=== PATIENT | female | born 1955 | race African-American/Black ===

== ENCOUNTER → 2018-10-25 | Day surgery (SDC) | payer OTHER ==
[2018-10-24 14:17] LABS: ANION GAP 15.3 mmol/L (8-16); BLOOD UREA NITROGEN 9 mg/dL (7-26); BUN/CREATININE RATIO 11 (6-25); CALCIUM 9.9 mg/dL (8.4-10.2); CARBON DIOXIDE 26 mmol/L (22-29); CHLORIDE 101 mmol/L (98-107); CREATININE, SERUM 0.79 mg/dL (0.57-1.11); EST GLOMERULAR FILTRATION RATE > 60 ML/MIN (60-); GLUCOSE 145 mg/dL (74-118); POTASSIUM 3.3 mmol/L (3.5-5.1); SODIUM 139 mmol/L (136-145)
[~2018-10-25] MED LIST: AMLODIPINE BESY10 MG PO; APRISO0.375 GM PO; BAYER PO; BUPIVACAINE HCL 0.5% INJ 30 ML VIAL INJ ONE; BUPIVACAINE LIPOSOME/PF 266 MG/20 ML IJ ONE; CEFAZOLIN SOD 1 GM/NS 50ML 100 ML IV ONE; DEXAMETHASONE SOD PHOS INJ 4 MG/ML VIAL ONE; FENTANYL CITRATE/PF 100MCG/2 ML INJ ONE; HYDROCHLOROTHIA25 MG PO; JANUVIA100 MG PO; KETOROLAC TROMETHAMINE 30 MG/ML VIAL ONE; LIDOCAINE HCL 2% LOCAL INJ 5 ML SDV VIAL INJ ONE; MIDAZOLAM HCL 2 MG/2 ML VIAL ONE; ONDANSETRON HCL INJ 2MG/ML 2ML 2 MG/ML VIAL ONE; PROPOFOL IV EMULSION 10 MG/ML 20 ML VIAL ONE; SEVOFLURANE INHAL SOLN 250 ML PEN BTL ONE; SIMVASTATIN20 MG PO
--- OUTSIDE RECORDS SUMMARY | 2018-10-25 10:12 | XMS REPORT | Clinical Summary ---
Author Author [facility] Address Unknown Phone Unavailable Care Team Providers Care Costumer Assistant Name Role Phone Amol Soni MD PCP Allergies No Known Allergies Medications End Date Status Medication Sig Dispensed Refills Start Date 06/24/2018 ciprofloxacin (CIPRO) 500 Take 1 tablet 14 tablet 0 201 MG tablet (500 mg 9 total) by mouth 2 (two) times a day for 7 days. 06/24/2018 metroNIDAZOLE (FLAGYL) Take 1 tablet 21 tablet 0 500 MG tablet (500 mg 9 total) by mouth 3 (three) times a day for 7 days. Active Problems Not on file Encounters Care Team Description Date Type Specialty Tika Villalobos MD Colitis (Primary Dx) 06/16/2018 Emergency Emergency Medicine - 06/17/2018 06/16/2018 Travel Amol Soni MD Diarrhea, unspecified type (Primary Dx) 06/15/2018 Transcribe Orders after 10/24/2017 Social History Date Tobacco Use Types Packs/Day Years Used Never Smoker Smokeless Tobacco: Never Used Alcohol Use Drinks/Week oz/Week Comments No Alcohol Habits Answer Date Recorded How often do you have a drink containing alcohol? Never 06/16/2018 How many drinks containing alcohol do you have on Not asked a typical day when you are drinking? How often do you have six or more drinks on one Not asked occasion? Sex Assigned at Date Recorded Not on file Industry Job Start Date Occupation Not on file Not on file Not on file Travel End Travel History Travel Start No recent travel history available. Last Filed Vital Signs Time Taken Vital Sign Reading 06/17/2018 1:00 AM CDT Blood Pressure 127/71 06/17/2018 1:00 AM CDT Pulse 108 06/17/2018 1:00 AM CDT Temperature 37.1 C (98.8 F) 06/17/2018 1:00 AM CDT Respiratory Rate 20 06/17/2018 1:00 AM CDT Oxygen Saturation 96% - Inhaled Oxygen - Concentration 06/16/2018 9:56 PM CDT Weight 99.8 kg (220 lb) 06/16/2018 9:56 PM CDT Height 177.8 cm (5' 10") 06/16/2018 9:56 PM CDT Body Mass Index 31.57 Plan of Treatment Health Maintenance Due Date Last Done Comments BREAST CANCER SCREENING 2006 COLONOSCOPY SCREENING 2006 SHINGLES VACCINES (#1) 2006 INFLUENZA VACCINE 10/26/2018 Procedures Comments Procedure Name Priority Date/Time Associated Diagnosis CT ABDOMEN PELVIS W STAT 06/17/2018 CONTRAST 12:31 AM CDT MANUAL DIFFERENTIAL STAT 06/16/2018 10:58 PM CDT ESTIMATED GFR STAT 06/16/2018 10:58 PM CDT TYPE AND SCREEN STAT 06/16/2018 10:58 PM CDT PROTHROMBIN TIME WITH INR STAT 06/16/2018 10:58 PM CDT HEPATIC FUNCTION PANEL STAT 06/16/2018 10:58 PM CDT LIPASE LEVEL STAT 06/16/2018 10:58 PM CDT BASIC METABOLIC PANEL STAT 06/16/2018 10:58 PM CDT CBC WITH PLATELET AND STAT 06/16/2018 DIFFERENTIAL 10:58 PM CDT after 10/24/2017 Results * CT Abdomen Pelvis W Contrast (06/17/2018 12:31 AM CDT) Specimen Narrative Performed At CT ABDOMEN PELVIS W CONTRAST [facility] CLINICAL INDICATION:Abd paindiverticulitis suspected, llq pain TECHNIQUE: Multidetector CT of the abdomen and pelvis was performed following intravenous administration of iodinated contrast with multiplanar reformats. CT scans are performed using radiation dose reduction techniques (iterative reconstruction and/or automated exposure control). Technical factors are evaluated and adjusted to ensure appropriate moderation of exposure. Automated dose management technology is applied to adjust radiation exposure while achieving a diagnostic quality image. COMPARISON:None. FINDINGS: Lung bases:Basilar subsegmental atelectasis/scarring. Liver:Ill-defined hypodensity with overlying capsular retraction involving segment IVb, measures approximately 3.0 cm. Few other subcentimeter hepatic cysts/hypodensities are overall too small to characterize though are likely benign. [No follow-up recommended unless clinically warranted.] . Gallbladder and biliary:The gallbladder is absent. Clips within the gallbladder fossa. Common bile duct is not dilated. Pancreas:Normal. Spleen:Normal. Gastrointestinal: Wall thickening of the cecum, ascending colon, transverse colon and proximal descending colon as well as rectum with associated pericolonic stranding. Large and small bowel are normal in caliber. Appendix is not visualized. No focal inflammatory changes within the right lower quadrant of the abdomen. Adrenals:Normal. Kidneys and ureters: Renal cysts measure up to 1.9 cm on right. Few other bilateral subcentimeter renal cysts/hypodensities are overall too small to characterize though are likely benign. [No follow-up recommended unless clinically warranted.]No hydronephrosis. Urinary bladder:Normal. Lymph nodes: Mesenteric lymph nodes measure 1.6 cm on right, nonspecific, may be reactive. Peritoneum:No ascites or free air. Vascular:Mild atherosclerotic changes of the abdominal aorta and major branch vessels. Reproductive organs:Uterus is lobulated likely related to fibroids. Unremarkable adnexae. Abdominal wall: Small fat-containing umbilical hernia. Partially visualized lipoma of left proximal thigh medial compartment. Right breast nodule measuring 1.8 cm. Bones:Mild degenerative changes. IMPRESSION: 1. Colitis involving majority of colon as well as rectum. There is relative sparing of the sigmoid colon. 2. Left hepatic lobe lesion (segment IVb). Recommend further evaluation with nonemergent contrast-enhanced MRI. 3. Right breast nodule. Recommend correlation with dedicated nonemergent breast imaging. [facility]-[id number] Procedure Note [facility], Radiology Results Incoming - 06/17/2018 12:[address] ABDOMEN PELVIS W CONTRAST CLINICAL INDICATION: Abd pain diverticulitis suspected, llq pain TECHNIQUE: Multidetector CT of the abdomen and pelvis was performed following intravenous administration of iodinated contrast with multiplanar reformats. CT scans are performed using radiation dose reduction techniques (iterative reconstruction and/or automated exposure control). Technical factors are evaluated and adjusted to ensure appropriate moderation of exposure. Automated dose management technology is applied to adjust radiation exposure while achieving a diagnostic quality image. COMPARISON: None. FINDINGS: Lung bases: Basilar subsegmental atelectasis/scarring. Liver: Ill-defined hypodensity with overlying capsular retraction involving segment IVb, measures approximately 3.0 cm. Few other subcentimeter hepatic cysts/hypodensities are overall too small to characterize though are likely benign. [No follow-up recommended unless clinically warranted.] . Gallbladder and biliary: The gallbladder is absent. Clips within the gallbladder fossa. Common bile duct is not dilated. Pancreas: Normal. Spleen: Normal. Gastrointestinal: Wall thickening of the cecum, ascending colon, transverse colon and proximal descending colon as well as rectum with associated pericolonic stranding. Large and small bowel are normal in caliber. Appendix is not visualized. No focal inflammatory changes within the right lower quadrant of the abdomen. Adrenals: Normal. Kidneys and ureters: Renal cysts measure up to 1.9 cm on right. Few other bilateral subcentimeter renal cysts/hypodensities are overall too small to characterize though are likely benign. [No follow-up recommended unless clinically warranted.] No hydronephrosis. Urinary bladder: Normal. Lymph nodes: Mesenteric lymph nodes measure 1.6 cm on right, nonspecific, may be reactive. Peritoneum: No ascites or free air. Vascular: Mild atherosclerotic changes of the abdominal aorta and major branch vessels. Reproductive organs: Uterus is lobulated likely related to fibroids. Unremarkable adnexae. Abdominal wall: Small fat-containing umbilical hernia. Partially visualized lipoma of left proximal thigh medial compartment. Right breast nodule measuring 1.8 cm. Bones: Mild degenerative changes. IMPRESSION: 1. Colitis involving majority of colon as well as rectum. There is relative sparing of the sigmoid colon. 2. Left hepatic lobe lesion (segment IVb). Recommend further evaluation with nonemergent contrast-enhanced MRI. 3. Right breast nodule. Recommend correlation with dedicated nonemergent breast imaging. [facility]-[id number] Performing Organization Address City/State/Zipcode Phone Number [place] [address] [place] [address] * Estimated GFR (06/16/2018 10:58 PM CDT) Estimated GFR 80 mL/min/1.73 m2 [place] Comment: GREGG BOOKER [facility] G1 >=90 Normal or high G2 60-89Mildly decreased [id number] Mildly to moderately decreased [id number] Moderately to severely decreased G4 15-29Severely decreased G5 <15Kidney failure The eGFR was calculated using the Chronic Kidney Disease Epidemiology Collaboration (CKD-EPI) equation. Interpretation is based on recommendations of the National Kidney Foundation-Kidney Disease Outcomes Quality Initiative (NKF-KDOQI) published in 2014. Specimen Plasma specimen Performing Organization Address City/State/Zipcode Phone Number [place] [phone] [facility] [place] [address] PATHOLOGY AND GENOMIC MEDICINE [address] * Manual differential (06/16/2018 10:58 PM CDT) Manual PERFORMED [place] differential [facility] Neutrophils 63.0 36.0 - 66.0 % [facility] Lymphocytes 20.0 (L) 24.0 - 44.0 % [facility] Monocytes 11.0 (H) 0.0 - 6.0 % [facility] Eosinophils 6.0 0.0 - 6.0 % [facility] Basophils 0.0 0.0 - 1.2 % [facility] Metamyelocytes 0 0 - 1 % [facility] Promyelocytes 0 0 - 1 % [facility] Platelet slide Hernan adequate [facility] review [facility] Specimen Performing Organization Address City/State/Zipcode Phone Number [place] [phone] [facility] [place] [phone] PATHOLOGY AND GENOMIC MEDICINE [address] * Prothrombin time with INR (06/16/2018 10:58 PM CDT) Prothrombin 13.4 11.5 - 14.5 sec [facility] INR 1.05 [place] Comment: GREGG BOOKER For patients on anticoagulant [place] therapy, reference ranges [facility]OS[facility]ITAL below: Indication: INR Value Treatment of Venous Thrombosis, 2.0-3.0 pulmonary emboli, or prophylaxis of a venous thrombosis, or systemic emboli. High dose, high risk patients 3.0-4.5 with mechanical valves. NOTE:INR values over 3.0 are sometimes associated with gastrointestinal hemorrhage, especially values over 4.0. Specimen Blood Performing Organization Address City/State/Zipcode Phone Number [facility] DEPARTMENT OF [address] [place] [address] PATHOLOGY AND GENOMIC MEDICINE [facility] [address] [place], [place] [phone] [place] [address] * CBC with platelet and differential (06/16/2018 10:58 PM CDT) WBC 5.8 4.2 - 11.0 k/uL [facility] RBC 4.59 4.04 - 5.86 m/uL [facility] HGB 11.8 11.5 - 15.3 g/dL [facility] HCT 38.0 34.0 - 45.0 % [facility] MCV 82.8 80.0 - 98.0 fL [facility] MCH 25.7 (L) 27.0 - 34.0 pg [facility] MCHC 31.1 (L) 31.5 - 36.5 g/dL [facility] RDW - SD 40.7 37.0 - 51.0 fL [facility] MPV 12.5 (H) 7.4 - 10.4 fL [facility] Platelet count 203 150 - 400 k/uL [facility] Nucleated RBC 0.00 /100 WBC [facility] Neutrophils 63.0 36.0 - 66.0 % [facility] Lymphocytes 20.0 (L) 24.0 - 44.0 % [facility] Monocytes 11.0 (H) 0.0 - 6.0 % [facility] Eosinophils 6.0 0.0 - 6.0 % [facility] Basophils 0.0 0.0 - 1.2 % [facility] Specimen Blood Performing Organization Address City/[facility]/Zipcode Phone Number [facility] DEPARTMENT OF [address] [place] [phone] PATHOLOGY AND GENOMIC MEDICINE [place] [address] [address] * Type and screen (06/16/2018 10:58 PM CDT) Pathologist [facility] ABO grouping A [facility] Rh type NEG [facility] Antibody screen NEG [facility] (gel) [facility] Specimen Blood Performing Organization Address City/[facility]/Zipcode Phone Number [facility] DEPARTMENT OF [address] [place] [phone] PATHOLOGY AND GENOMIC MEDICINE [place] [address] [address] * Lipase level (06/16/2018 10:58 PM CDT) Pathologist [facility] Lipase 116 (H) 13 - 60 U/L [facility] Specimen Plasma specimen Performing Organization Address [facility] Phone Number [facility] DEPARTMENT OF [address] [place] [phone] PATHOLOGY AND GENOMIC MEDICINE [place] [address] [address] * Hepatic function panel (06/16/2018 10:58 PM CDT) [facility] Albumin 3.4 (L) 3.5 - 5.0 g/dL [facility] Total bilirubin 0.3 0.2 - 1.2 mg/dL [facility] Bilirubin <0.2 0.0 - 0.4 mg/dL [facility] direct [facility] Alkaline 83 0 - 104 U/L [place] phosphatase [facility] Protein 8.4 (H) 6.3 - 8.3 g/dL [facility] ALT 14 5 - 50 U/L [facility] AST 20 10 - 35 U/L [facility] Specimen Plasma specimen Performing Organization Address City/[facility]/Zipcode Phone Number [facility] DEPARTMENT OF [address] [place] [phone] PATHOLOGY AND GENOMIC MEDICINE [place] [address] [address] [place], [place] [phone] [place] [address] * Basic metabolic panel (06/16/2018 10:58 PM CDT) Sodium 139 135 - 150 mEq/L [facility] Potassium 3.2 (L) 3.5 - 5.0 mEq/L [facility] Chloride 95 (L) 98 - 112 mEq/L [facility] CO2 28 24 - 31 mmol/L [facility] Anion gap 16@ANIO (H) 7 - 15 mEq/L [facility] BUN 10 7 - 18 mg/dL [facility] Creatinine 0.90 0.50 - 0.90 mg/dL [facility] Glucose 231 (H) 65 - 100 mg/dL [facility] Calcium 9.4 8.8 - 10.2 mg/dL [facility] Specimen Plasma specimen Performing Organization Address City/State/Zipcode Phone Number [facility] DEPARTMENT OF [address] [place] [address] PATHOLOGY AND GENOMIC MEDICINE [facility] [address] after 10/24/2017 Insurance Type Payer Benefit Subscriber ID Effective Phone Address Plan / Dates Group Exchange [employer] [facility] xxxxxxxxxxxx 2018-P EXCHANGE [facility] resent EXCHANGE [employer] Advance Directives Patient has advance care planning documents on file. For more information, plebrandi e contact: [facility] [address] [place] [address]
[2018-10-25 14:40] VITALS: BP 134/74
--- NOTE | 2018-11-01 11:54 | Operative Report ---
DATE OF PROCEDURE: 10/25/2018 SURGEON: Otilia Randolph DPM MECHANICAL MAINTENANCE INSTRUCTOR: None. PREOPERATIVE DIAGNOSES: 1. Left foot 4th digit hammertoe deformity. 2. Left foot 5th digit hammertoe deformity. POSTOPERATIVE DIAGNOSES: 1. Left foot 4th digit hammertoe deformity. 2. Left foot 5th digit hammertoe deformity. PROCEDURE: 1. Left foot 4th digit arthroplasty with implants. 2. Left foot 5th digit arthroplasty with implants. ANESTHESIA: General. HEMOSTASIS: Thigh tourniquet at 250 mmHg. INJECTABLES: 10 mL of 0.5% Marcaine plain. MATERIALS USED: Two small [place] 10-degree angled hammertoe implant. DESCRIPTION OF PROCEDURE: After informed consent was obtained, the patient was brought to the operating room and placed on the operating table in the supine position. General anesthesia was obtained. Pneumatic thigh tourniquet was applied to the left side. The left lower extremity was scrubbed, prepped, and draped in the usual aseptic manner. Attention was directed to the left foot, where after elevating for approximately 1 minute left thigh tourniquet inflated to 250 mmHg. Attention was directed to the left foot 4th digit and 5th digit, where linear incisions were made approximately 3 cm in length encompassing the proximal interphalangeal joint. Incision was deepened down utilizing sharp dissection technique. Operative structures were identified and retracted as necessary. Next, the proximal interphalangeal joint was visualized and capsulotomy performed resecting capsule in both proximally and distally exposing proximal interphalangeal joint. Next, articular surfaces were resected and removed from surgical site utilizing sagittal saw. At this time, intraoperative fluoroscopy was used, which showed good reduction of deformity. Next, utilizing the [place], hammertoe implant 10-degree angle size small set. The implant was placed across the fusion site. Intraoperative fluoroscopy was used. Once the implant was placed, which showed good reduction of deformity and good placement of hardware. Next, the wound was irrigated with copiously amount of normal saline. Next, wounds were then coapted utilizing 3-0 Vicryl, 4-0 nylon. Attention was directed to the left foot 5th digit, where linear incision was made from proximal to distal encompassing the proximal interphalangeal joint. The incision was deepened down utilizing sharp dissection technique. Operative structures were identified and retracted as necessary. All bleeders were identified, ligated and cauterized as necessary. Next, the capsulotomy was performed exposing the proximal interphalangeal joint of the 5th digit. Next, articular surfaces were from surgical site at the which showed good reduction of deformity. Next, fusion of the joint was performed utilizing a size small 10-degree angled Maggie hammertoe implant. Once the implant was placed utilizing the implant guide technique. Intraoperative fluoroscopy was used, which showed good reduction of deformity and good fixation across the fusion site and good placement of the implant. The wound was irrigated with copious amounts of normal saline. The wound was then coapted utilizing 3-0 Vicryl and 4-0 nylon. Surgical sites were then injected with 10 mL of 0.5% Marcaine plain. The left foot was then placed in dry sterile dressing consisting of Xeroform, 4 x 4s, Kerlix, and Jonathan wrap. The patient tolerated the procedure and anesthesia well. The patient was transferred back to recovery room with vital signs stable and neurovascular status intact to preop status. KARIS Ambrocio/SURESH /[id number]
== END | disposition home or self-care (01) ==
LOC: OR 10:10
PROVIDERS: ATTEND Podiatrist Foot & Ankle Surgery
DX: M20.41 Other hammer toe(s) (acquired), right foot (principal); E11.9 Type 2 diabetes mellitus without complications; I10 Essential (primary) hypertension; Z01.810 Encounter for preprocedural cardiovascular examination; Z01.812 Encounter for preprocedural laboratory examination; Z79.82 Long term (current) use of aspirin; Z79.84 Long term (current) use of oral hypoglycemic drugs
CPT/HCPCS: 28285 ×2; 36415 ×2; 80048; 82948; 93005; J0690; J1100; J1885; J2001; J2250; J2405; J2704; J3010